=== PATIENT | female | born 1980 | race Caucasian/White ===

== ENCOUNTER 2016-12-13 03:55 | Inpatient (IN) | payer BC ==
[2016-12-13] VITALS (8 sets, daily range): BP systolic 144–160; BP diastolic 71–84; PULSE 59–66; TEMP 97.9–98.6
[~2016-12-13] VITALS: Ht 160 cm; Wt 113.8 kg
[~2016-12-13 03:55] MED LIST: B COMPLEX1 TA2 PO; CARDI-OMEGA1000 MG PO; NO HOME MEDICATIONS; PRENATAL VITAMI1 TA5 PO; VITAMIN D1000 IU PO
[2016-12-13 05:06] LABS: BASO % 0.4 % (0.0-2.0); EOS # 0.1 (0.0-0.7); EOS % 1.3 % (0-4.0); GRAN # 6.1 (1.4-6.5); GRAN % 67.2 % (42.2-75.2); HEMATOCRIT 42.9 % (37.0-47.0); HEMOGLOBIN 14.4 g/dl (12.5-16.0); LYMPH # 2.1 (1.2-3.4); LYMPH % 23.4 % (20.0-51.0); MEAN CELL VOLUME 88 fl (80.0-100.0); MEAN CORPUSCULAR HEMOGLOBIN 30 pg (27.0-31.0); MEAN CORPUSCULAR HGB CONC 34 g/dl (33.0-37.0); MEAN PLATELET VOLUME 9.9 fl (7.4-10.4); MONO # 0.7 (0.1-0.6); MONO % 7.3 % (1.7-9.3); PLATELET COUNT 240 K/mm3 (130-400); RED BLOOD COUNT 4.87 M/mm3 (4.10-5.30); REDCELL DISTRIBUTION WIDTH-CV 12.1 % (11.5-14.5); WHITE BLOOD COUNT 9.1 K/mm3 (4.8-10.8)
[2016-12-13 05:19] LABS: ADJUSTED CALCIUM 9.1 mg/dL (8.4-10.2); ALBUMIN 4.3 gm/dL (3.5-5.0); BILIRUBIN,TOTAL 0.7 mg/dL (0.0-1.0); CALCIUM 9.3 mg/dL (8.4-10.2); CREATININE, serum 0.6 mg/dL (0.52-1.25); PH 5 (5-8); POTASSIUM 3.6 mmol/L (3.4-5.0); SQUAMOUS EPITHELIAL 0-2 /hpf; TOTAL PROTEIN 7.8 gm/dL (6.4-8.2); URINE APPEARANCE Clear; URINE BACTERIA None Seen /hpf; URINE BILIRUBIN Negative (NEGATIVE); URINE BLOOD Negative (NEGATIVE); URINE COLOR Yellow; URINE GLUCOSE Negative (NEGATIVE); URINE KETONE Negative (NEGATIVE); URINE RBC 0-2 /hpf; URINE UROBILINOGEN Negative (NEGATIVE); URINE WBC 0-2 /hpf
[2016-12-13] MEDS ORDERED: B COMPLEX #11 TA1 PO (09:07)
[2016-12-13] MEDS ORDERED: MARNATAL-F1 CAP PO (09:08)
[2016-12-13] MEDS ORDERED: ZANTAC 150MG T150 MG PO (09:09)
[2016-12-13] MEDS ORDERED: NORCO 325 MG-51 TAB PO (18:37)
== END 2016-12-13 19:00 | disposition home or self-care (01) | DRG 418 ==
LOC: COL.ER 03:55 → SURG 05:50
PROVIDERS: Family Medicine; Surgery
PROC: BF101ZZ Fluoroscopy of Bile Ducts using Low Osmolar Contrast (ICD-10-PCS; 2016-12-13)
PROC: 0FT44ZZ Resection of Gallbladder, Percutaneous Endoscopic Approach (ICD-10-PCS; principal; 2016-12-13 11:15)
DX: K80.12 Calculus of gallbladder with acute and chronic cholecystitis without obstruction (principal); Z68.41 Body mass index [BMI] 40.0-44.9, adult; E66.9 Obesity, unspecified
CPT/HCPCS: J0360; J0690; J1100; J1170; J1885; J2175; J2250; J2405; J2543; J2704; J2710; J3010; J7030; J7050; J7120; Q9967